=== PATIENT | male | born 1970 | race Caucasian/White ===

== ENCOUNTER 2023-08-15 07:01 | Day surgery (SDC) | payer OTHER ==
[~2023-08-15] VITALS: Ht 170.2 cm; Wt 88.0 kg
[2023-08-15] MEDS ORDERED: MEPERIDINE 100 MG INJ. 100 MG/ML VIAL ONE (07:49)
[2023-08-15] MEDS ORDERED: MIDAZOLAM HCL 5 MG/5 ML VIAL ONE (07:49)
[2023-08-15 11:48] VITALS: O2SAT 97
[2023-08-15 12:38] VITALS: BP_SYST 109; PULSE 56; RESP 14
== END 2023-08-15 10:15 | disposition home or self-care (01) ==
LOC: SDS 07:01 → SMU 07:03 → SDS 10:15
PROVIDERS: ATTEND Internal Medicine Gastroenterology
DX: R19.5 Other fecal abnormalities (principal); K64.8 Other hemorrhoids; K62.89 Other specified diseases of anus and rectum; E11.9 Type 2 diabetes mellitus without complications; Z79.84 Long term (current) use of oral hypoglycemic drugs; Z79.899 Other long term (current) drug therapy
CPT/HCPCS: 45378; 82948; 99152; 99153; G0378; J2250; J2175